=== PATIENT | female | born 2000 | race Caucasian/White ===

== ENCOUNTER → 2021-03-08 | Outpatient (CLI) | payer OTHER ==
[2021-03-08 16:01] LABS: Basophils % (A) 0 %; Eosinophils # (A) 0.1 k/uL (0-0.7); Eosinophils % (A) 1 %; HCT 41.2 % (34.0-46.0); HGB 13.3 gm/dL (11.4-16.0); Lymphocytes # (A) 1.5 k/uL (1.0-4.8); Lymphocytes % (A) 21 %; MCH 29.3 pg (25.0-35.0); MCHC 32.3 g/dL (31.0-37.0); MCV 90.5 fL (80.0-100.0); Mean Platelet Volume 7.6; Monocytes # (A) 0.3 k/uL (0-1.0); Monocytes % (A) 4 %; Neutrophils # (A) 5.1 k/uL (1.3-7.7); Neutrophils % (A) 73 %; Platelet Count 272 k/uL (150-450); RBC 4.55 m/uL (3.80-5.40); RDW 14.6 % (11.5-15.5); WBC 7.1 k/uL (4.0-11.0)
[2021-03-08 16:13] LABS: ALT 29 U/L (4-34); AST 34 U/L (14-36); African American GFR (CKD) >90 (>60 ml/min/1.73 sqM); Albumin 4.3 g/dL (3.5-5.0); Alkaline Phosphatase 50 U/L (38-126); Anion Gap 8 mmol/L; Blood Urea Nitrogen 11 mg/dL (7-17); Carbon Dioxide 28 mmol/L (22-30); Chloride 103 mmol/L (98-107); Glucose 95 mg/dL (74-99); Non-African American GFR(CKD) 83 (>60 ml/min/1.73 sqM); Potassium 4.2 mmol/L (3.5-5.1); Sodium 139 mmol/L (137-145); Total Bilirubin 0.3 mg/dL (0.2-1.3); Total Protein 6.9 g/dL (6.3-8.2)
[2021-03-08 16:28] LABS: T4, Free (Free Thyroxine) 0.97 ng/dL (0.78-2.19)
[2021-03-09 03:42] LABS: Hemoglobin A1C 5.5 % (4.0-6.0)
[2021-03-09 06:02] LABS: Follicle Stimulating Hormone 4.8 mIU/mL; Luteinizing Hormone 9.6 mIU/mL; Prolactin 6.7 ng/mL (2.8-29.2)
--- NOTE | 2021-03-09 12:39 | US ---
EXAMINATION TYPE: US thyroid st tissue head/neck DATE OF EXAM: 03/08/2021 COMPARISON: NONE CLINICAL HISTORY: GOITER E04.9. PCOS patient not feeling right, had labs done today GLAND SIZE: Right Lobe: 5.5 x 1.4 x 1.5 cm Overall Parenchyma: homogenous Left Lobe: 5.2 x 1.4 x 1.2 cm Overall Parenchyma: homogeneous Isthmus Thickness: 0.4 cm NODULES RIGHT: # of nodules measured on right: 0 LEFT: # of nodules measured on left: 0 ISTHMUS: # of nodules measured in the isthmus: 0 Bilateral neck scanned, no evidence of lymphadenopathy. *scanned inferior to thyroid gland bilaterally and no parathyroid tissue was seen* IMPRESSION: Slightly prominent thyroid gland.
== END | disposition home or self-care (01) ==
LOC: RADUSWWP 15:39
PROVIDERS: ATTEND Family Medicine
DX: E28.2 Polycystic ovarian syndrome (principal); E04.9 Nontoxic goiter, unspecified
CPT/HCPCS: 76536; 80053; 82607; 83001; 83002; 83036; 84144; 84146; 84403; 84439; 84443; 85025

== ENCOUNTER → 2021-04-17 | Outpatient (CLI) | payer OTHER ==
[2021-04-18 17:45] LABS: Chol/HDL Ratio 3.7
== END | disposition home or self-care (01) ==
LOC: LABWHC1 13:59
PROVIDERS: ATTEND Family Medicine
DX: N91.5 Oligomenorrhea, unspecified (principal); F34.1 Dysthymic disorder; Z68.43 Body mass index [BMI] 50.0-59.9, adult
CPT/HCPCS: 36415; 80061

== ENCOUNTER → 2022-03-12 | Outpatient (CLI) | payer OTHER ==
[2022-03-12 08:51] VITALS: BP 134/84; PULSE 71; RESP 18; TEMP 98.3
--- NOTE | 2022-03-12 11:01 | P.HPOB ---
History of Present Illness H&P Date: 03/12/22 Chief Complaint: Recurrent vaginitis symptoms during the past 6 months. This is a 22-year-old G0 with an LMP of 01/03/2022. The patient is here to establish with this office. Her main complaint is recurrent vaginitis symptoms. She states she believes she has had recurrent yeast infections during the past 6 months. In the past she states she use to only get yeast infections after taking antibiotics, but more recently she has been getting them more frequently especially after menstrual periods. Menarche was at age 19 and menstrual periods were infrequent about every 4-6 months in the past. One to 2 years ago she was started on metformin for PCOS and she states her menstrual periods are now about every 2 months. Her symptoms typically are a whitish or yellowish cottage cheeselike discharge with itching in the vagina. She also has noticed feeling like she has cuts near the rectal opening in this sensation comes and goes. She denies seeing any blister like lesions. She generally has not noticed odor during the day but can sometimes notice a slight odor with end of the day. She sometimes times notices smegma that she can wipe away in the creases around the vagina. She typically will use Monistat when she has vaginitis symptoms and this seems to help. She has also tried vinegar baths and recently has stopped using soap in the vaginal region. She denies douching. She has been with her female sexual partner for about 1 year. She has had sexual intercourse with 2 different men for short periods of time in 2019 and August 2020. She states her symptoms are minimal at this time. She has never had a pelvic exam done before. Review of Systems She has lost about 25 pounds with diet and exercise. Her weight was up to 340 pounds. She denies respiratory or cardiac problems. GI: Occasional constipation and and this can alter with frequent bowel movements. Past Medical History Additional Past Medical History / Comment(s): PCOS 2019. 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 History of Any Multi-Drug Resistant Organisms: None Reported Past Surgical History: No Surgical Hx Reported Past Anesthesia/Blood Transfusion Reactions: No Reported Reaction Past Psychological History: Anxiety, Depression Smoking Status: Vaper Past Alcohol Use History: Occasional Past Drug Use History: Marijuana Additional Drug Use History / Comment(s): ATTEMPTING TO QUIT MARIJUANA Additional History: She is single and has been with her female partner since January 2021. She works in the [employer] department at [employer]. - Past Family History Father Additional Family Medical History / Comment(s): Overweight. Mother Additional Family Medical History / Comment(s): Iron deficiency anemia. Maternal aunt also has iron deficiency anemia. A maternal great aunt had breast cancer. Medications and Allergies Home Medications Medication Instructions Recorded Confirmed Type Topiramate [Topamax] 50 mg PO DAILY 03/12/22 03/12/22 History buPROPion [Wellbutrin] 100 mg PO DAILY 03/12/22 03/12/22 History metFORMIN HCL 500 mg PO DAILY 03/12/22 03/12/22 History Allergies Allergy/AdvReac Type Severity Reaction Status Date / Time No Known Allergies Allergy Unverified 03/12/22 08:41 Exam Vital Signs Temp Pulse Resp BP Pulse Ox 03/12/22 08:45 98.3 F 71 18 134/84 98 Intake and Output 03/11/22 03/12/22 03/12/22 22:59 06:59 14:59 Other: Weight 143.335 kg Height 5 feet 7 inches, weight 316 pounds, BMI 49.5. This is a well-developed well-nourished obese black female who is alert and oriented times 3 in no acute distress. HEENT: Within normal limits. NECK: Supple without mass or thyromegaly. CHEST AND LUNGS: Clear to auscultation. HEART: Regular rate and rhythm. BREASTS: Deferred. BACK: Negative for CVA tenderness. ABDOMEN: Soft, obese, nontender, without palpable masses. PELVIC EXAM: There is a small dry ulcerated area at the anterior aspect of the perineum measuring approximately 3-4 mm. She states this is the area that sometimes feels like cuts . The external genitalia is otherwise unremarkable. Cervix and vagina appear normal . There is a small amount of whitish mucousy discharge without odor. There is no cervical motion tenderness. There is no evidence of prolapse. The uterus is midposition, nongravid size and nontender. There are no palpable adnexal masses or tenderness. RECTAL EXAM: Deferred. EXTREMITIES: Nontender. IMPRESSION: 1. 22-year-old female with recurrent vaginitis and vulvitis symptoms. Differential diagnosis will include recurrent mike vaginitis, recurrent genital HSV outbreaks, contact dermatitis, bacterial vaginosis, and less likely, STD such as Chlamydia or Trichomonas. 2. Perineal ulceration could represent an HSV lesion that is past the blister or broken blister stage. 3. Previous mail sexual encounters 2 in the past with current female sexual partner during the past 1 year. PLAN: 1. Pap smear was performed. 2. Affirm vaginitis panel was obtained from the vagina. GC and Chlamydia testing was obtained from the cervix. HSV testing was done on the perineal ulceration area. She understands the HSV testing may be limited since genital HSV may not be detectable when there is not a current or recent ulceration. 3. Since her symptoms are not bad at this time, we may not be seeing the cause for her recurrent symptoms. If no good explanation is determined after the the above testing is back, she was instructed to return when she is having more active symptoms. 4. She was advised to avoid over washing with soap, avoid sitting in a chlorinated water for long periods of time such as hot tubs or pools. I have also asked her to avoid douching. 5. She is being managed for PCOS with metformin by her PCP. 6. We discussed the importance of weight control. We discussed regular exercise and good nutrition. I have also recommended that she increase the fiber in her diet since she may having IBS symptoms. 7. She was advised to return in one year for her annual well woman exam and as needed. Total time spent with the patient 45 minutes.
[2022-03-13 15:57] LABS: Gardnerella Negative (Negative); Source Vagina; Trichomonas Negative (Negative)
== END ==
LOC: WWCWWP 08:29
PROVIDERS: ATTEND Obstetrics & Gynecology
DX: Z11.3 Encounter for screening for infections with a predominantly sexual mode of transmission (principal); N76.1 Subacute and chronic vaginitis; N76.2 Acute vulvitis; N76.6 Ulceration of vulva
CPT/HCPCS: 87480; 87491; 87510; 87591; 87660

== ENCOUNTER → 2023-05-11 | Outpatient (CLI) | payer MEDICAID ==
--- NOTE | 2023-05-11 14:32 | XR ---
EXAMINATION TYPE: XR knee complete RT DATE OF EXAM: 05/11/2023 2:22 PM CLINICAL INDICATION:Female, 23 years old with history of M25.561; [facility] COMPARISON: None. TECHNIQUE: XR knee complete RT; examined in Frontal, lateral and oblique projections. FINDINGS: No evidence of any acute osseous pathology, soft tissue swelling, or joint effusion is no madhu. Muscle injury to the tibial tuberosity with osseous body without union to the tibial tuberosity. Mild osteophyte formation of the tibial plateau. IMPRESSION: 1. No acute osseous pathology. 2. Suspected prior [place]-Schlatter's. 3. Mild osteoarthrosis of the knee.
== END | disposition home or self-care (01) ==
LOC: RADXRMAIN 14:01
PROVIDERS: ATTEND Family Medicine
DX: M17.11 Unilateral primary osteoarthritis, right knee (principal)

== ENCOUNTER → 2023-06-02 | Outpatient (CLI) | payer MEDICAID ==
--- NOTE | 2023-06-06 05:45 | MR ---
EXAMINATION TYPE: MR knee RT wo con DATE OF EXAM: 06/02/2023 COMPARISON: Outside left knee x-ray May 27, 2023 HISTORY: Rt knee pain and swelling for 7+ years. TECHNIQUE: Multiplanar, multisequence images of the knee is performed without IV contrast. FINDINGS: MEDIAL MENISCUS: Anterior and posterior horns are intact without tear. LATERAL MENISCUS: Anterior and posterior horns are intact without tear. CRUCIATE LIGAMENTS: The anterior and posterior cruciate ligaments are intact and unremarkable. COLLATERAL LIGAMENTS: The medial collateral ligament and lateral collateral ligament complex are inta ct and unremarkable. EXTENSOR MECHANISM: Visualized quadriceps and patellar tendons are intact. Correlating with plain aldo m there is a 1.1 cm well-defined ossific density or fragment along the distal patellar tendon could r eflect product of an old [place]-Schlatter injury. EFFUSION: Small septated suprapatellar joint effusion Laterally. POPLITEAL CYST: No popliteal/brenner cyst. TRICOMPARTMENT SPACES: Mild to moderate narrowing inferior patellofemoral compartment. No significant spurring. CARTILAGE: Area of focal chondromalacia patella posterior patellar pole at site of most prominent kimber nt space narrowing axial image 29 BONE MARROW SIGNAL: No focal abnormal marrow signal is appreciated. OTHER: No additional significant abnormality is appreciated. IMPRESSION: 1. There is 1.1 cm well-defined ossific density or fragment along the distal patellar tendon suspicio us for product of old [place]-Schlatter injury. 2. Asymmetric mild to moderate patellofemoral joint arthropathy is noted as detailed above. 3. Small septated suprapatellar joint effusion.
== END | disposition home or self-care (01) ==
LOC: RADMRIMAIN 19:02
PROVIDERS: ATTEND Orthopaedic Surgery
DX: M17.11 Unilateral primary osteoarthritis, right knee (principal); M25.461 Effusion, right knee; M67.863 Other specified disorders of tendon, right knee

== ENCOUNTER 2023-12-20 10:24 | Emergency (ER) | payer BC, MEDICAID ==
[2023-12-20 10:45] VITALS: RESP 18; TEMP 98.6
[2023-12-20 12:09] LABS: Appearance,Urine Clear (Clear); Bilirubin,Urine Negative (Negative); Blood,Urine Negative (Negative); Color,Urine Colorless; Glucose,Urine (UA) Negative (Negative); Ketones,Urine Negative (Negative); Leukocyte Esterase,Urine Negative (Negative); Nitrite,Urine Negative (Negative); Protein,Urine Negative (Negative); Specific Gravity,Urine 1.008 (1.001-1.035); Urobilinogen,Urine <2.0 mg/dL (<2.0)
--- NOTE | 2023-12-20 12:32 | XR ---
EXAMINATION TYPE: XR KUB DATE OF EXAM: 12/20/2023 11:12 AM CLINICAL INDICATION:Female, 23 years old with history of pain; [facility] COMPARISON: None. TECHNIQUE: Upright view/S of the abdomen. FINDINGS: The bowel gas pattern is nonspecific, likely nonobstructive without dilated loops of small or large b owel. Small amount of fecal material and gas are demonstrated throughout the colon. No gross evidence of organomegaly. No evidence of pneumoperitoneum. No pathologic calcifications are seen. Osseous st ructures appear grossly intact. Mild S-shaped curvature of the spine. IMPRESSION: Nonspecific, likely nonobstructive bowel gas pattern. If concern persists, consider follow-up radiogr aphs and/or CT.
[2023-12-20 12:45] LABS: Basophils % (A) 0 %; Eosinophils # (A) 0.1 k/uL (0-0.7); Eosinophils % (A) 1 %; HCT 40.8 % (34.0-46.0); Lymphocytes # (A) 1.8 k/uL (1.0-4.8); Lymphocytes % (A) 25 %; MCH 29.2 pg (25.0-35.0); MCHC 31.9 g/dL (31.0-37.0); MCV 91.5 fL (80.0-100.0); Mean Platelet Volume 7.7; Monocytes # (A) 0.4 k/uL (0-1.0); Monocytes % (A) 5 %; Neutrophils # (A) 4.8 k/uL (1.3-7.7); Neutrophils % (A) 67 %; Platelet Count 285 k/uL (150-450); RBC 4.46 m/uL (3.80-5.40); RDW 14.9 % (11.5-15.5); WBC 7.1 k/uL (3.8-10.6)
[2023-12-20 12:50] LABS: ALT 18 U/L (4-34); AST 28 U/L (14-36); African American GFR (CKD) >90 (>60 ml/min/1.73 sqM); Albumin 4.4 g/dL (3.5-5.0); Alkaline Phosphatase 43 U/L (38-126); Anion Gap 6 mmol/L; Blood Urea Nitrogen 10 mg/dL (7-17); Carbon Dioxide 31 mmol/L (22-30); Chloride 102 mmol/L (98-107); Glucose 88 mg/dL (74-99); Non-African American GFR(CKD) >90 (>60 ml/min/1.73 sqM); Sodium 139 mmol/L (137-145); Total Bilirubin 0.5 mg/dL (0.2-1.3); Total Protein 7.6 g/dL (6.3-8.2)
[2023-12-20 12:56] LABS: Potassium 4.5 mmol/L (3.5-5.1)
--- NOTE | 2023-12-20 13:04 | ED ---
Abdominal Pain HPI - General Chief Complaint: Abdominal Pain Stated Complaint: abd pain Time Seen by Provider: 12/20/23 10:32 Source: patient, RN notes reviewed Mode of arrival: ambulatory Limitations: no limitations - History of Present Illness Initial Comments: 23-year-old female presents the emergency department with chief complaint of abdominal discomfort, constipation she states she is never going to the bathroom as much she started on spironolactone. Patient states that she did have some stool pill which has helped states she is just not as much as usual because of abdominal pain and cramping. No dysuria no change in . - Related Data Home Medications Medication Instructions Recorded Confirmed Topiramate [Topamax] 50 mg PO DAILY 03/12/22 03/12/22 buPROPion [Wellbutrin] 100 mg PO DAILY 03/12/22 03/12/22 metFORMIN HCL 500 mg PO DAILY 03/12/22 03/12/22 Allergies Allergy/AdvReac Type Severity Reaction Status Date / Time No Known Allergies Allergy Verified 12/20/23 10:30 Review of Systems ROS Statement: Those systems with pertinent positive or pertinent negative responses have been documented in the HPI. ROS Other: All systems not noted in ROS Statement are negative. 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 History of Any Multi-Drug Resistant Organisms: None Reported Past Surgical History: No Surgical Hx Reported Past Anesthesia/Blood Transfusion Reactions: No Reported Reaction Past Psychological History: Anxiety, Depression Smoking Status: Vaper Past Alcohol Use History: Occasional Past Drug Use History: Marijuana - Past Family History Father Additional Family Medical History / Comment(s): Overweight. Mother Additional Family Medical History / Comment(s): Iron deficiency anemia. Ma ternal aunt also has iron deficiency anemia. A maternal great aunt had breast cancer. General Exam Limitations: no limitations General appearance: alert, in no apparent distress Head exam: Present: atraumatic, normocephalic, normal inspection Neck exam: Present: normal inspection. Absent: tenderness, meningismus, lymphadenopathy Respiratory exam: Present: normal lung sounds bilaterally. Absent: respiratory distress, wheezes, rales, rhonchi, stridor Cardiovascular Exam: Present: regular rate, normal rhythm, normal heart sounds. Absent: systolic murmur, diastolic murmur, rubs, gallop, clicks GI/Abdominal exam: Present: soft, normal bowel sounds. Absent: distended, tenderness, guarding, rebound, rigid Course Vital Signs 12/20/23 12/20/23 10:26 13:37 Temperature 98.6 F Pulse Rate 92 77 Respiratory 18 18 Rate Blood Pressure 143/96 133/79 O2 Sat by Pulse 100 100 Oximetry Medical Decision Making - Medical Decision Making Was pt. sent in by a medical professional or institution (, PA, HANGER, urgent care, hospital, or assisted...) When possible be specific @ -No Did you speak to anyone other than the patient for history (EMS, parent, family, police, friend...)? What history was obtained from this source @ -No Did you review nursing and triage notes (agree or disagree)? Why? @ -I reviewed and agree with nursing and triage notes Were old charts reviewed (outside hosp., previous admission, EMS record, old EKG, old radiological studies, urgent care reports/EKG's, assisted records)? Report findings @ -No old charts were reviewed Differential Diagnosis (chest pain, altered mental status, abdominal pain women, abdominal pain men, vaginal bleeding, weakness, fever, dyspnea, syncope, headache, dizziness, GI bleed, back pain, seizure, CVA, palpatations, mental health, musculoskeletal)? @ -Differential Abdominal Pain Women: Appendicitis, Cholecystitis, diverticulosis, ischemic bowel, pancreatitis, hepatitis, UTI, gastroenteritis, AAA, incarcerated hernia, bowel obstruction, constipation, inflammatory bowel, hepatitis, peptic ulcer disease, splenic infarction, perforated viscus, vulvitis, ovarian torsion, PID, kidney stone, placenta abruption, this is not meant to be an all-inclusive list EKG interpreted by me (3pts min.). @ -None X-rays interpreted by me (1pt min.). @ -X-ray KUB shows mild constipation CT interpreted by me (1pt min.). @ -None done U/S interpreted by me (1pt. min.). @ -None done What testing was considered but not performed or refused? (CT, X-rays, U/S, labs)? Why? @ -None What meds were considered but not given or refused? Why? @ -None Did you discuss the management of the patient with other professionals (professionals i.e. , PA, HANGER, lab, RT, psych nurse, social media designer, field talent qualification specialist, teacher, agricultural technical officer, case monitor)? Give summary @ -No Was smoking cessation discussed for >3mins.? @ -No Was critical care preformed (if so, how long)? @ -No Were there social determinants of health that impacted care today? How? (Homele ssness, low income, unemployed, alcoholism, drug addiction, transportation, low edu. Level, literacy, decrease access to med. care, shelter, rehab)? @ -No Was there de-escalation of care discussed even if they declined (Discuss DNR or withdrawal of care, Hospice)? DNR status @ -No What co-morbidities impacted this encounter? (DM, HTN, Smoking, COPD, CAD, Cancer, CVA, ARF, Chemo, Hep., AIDS, mental health diagnosis, sleep apnea, morbid obesity)? @ -None Was patient admitted / discharged? Hospital course, mention meds given and route, prescriptions, significant lab abnormalities, going to OR and other pertinent info. @ -'s laboratory findings are unremarkable, urinalysis unremarkable KUB shows mi ld stool consistent with patient's symptoms patient is discharged in stable condition return parameters sybil. Undiagnosed new problem with uncertain prognosis? @ -No Drug Therapy requiring intensive monitoring for toxicity (Heparin, Nitro, Insulin, Cardizem)? @ -No Were any procedures done? @ -No Diagnosis/symptom? @ -Abdominal pain Acute, or Chronic, or Acute on Chronic? @ -Acute Uncomplicated (without systemic symptoms) or Complicated (systemic symptoms)? @ -Uncomplicated Side effects of treatment? @ -No Exacerbation, Progression, or Severe Exacerbation? @ -No Poses a threat to life or bodily function? How? (Chest pain, USA, OR, pneumonia, PE, COPD, DKA, ARF, appy, cholecystitis, CVA, Diverticulitis, Homicidal, Suicidal, threat to staff... and all critical care pts) @ -No - Lab Data Result diagrams: 12/20/23 12:27 12/20/23 12:27 Lab Results 12/20/23 12/20/23 12/20/23 Range/Units 10:58 12:27 12:27 WBC 7.1 (3.8-10.6) k/uL RBC 4.46 (3.80-5.40) m/uL Hgb 13.0 (11.4-16.0) gm/dL Hct 40.8 (34.0-46.0) % MCV 91.5 (80.0-100.0) fL MCH 29.2 (25.0-35.0) pg MCHC 31.9 (31.0-37.0) g/dL RDW 14.9 (11.5-15.5) % Plt Count 285 (150-450) k/uL MPV 7.7 Neutrophils % 67 % Lymphocytes % 25 % Monocytes % 5 % Eosinophils % 1 % Basophils % 0 % Neutrophils # 4.8 (1.3-7.7) k/uL Lymphocytes # 1.8 (1.0-4.8) k/uL Monocytes # 0.4 (0-1.0) k/uL Eosinophils # 0.1 (0-0.7) k/uL Basophils # 0.0 (0-0.2) k/uL Sodium 139 (137-145) mmol/L Potassium 4.5 (3.5-5.1) mmol/L Chloride 102 (98-107) mmol/L Carbon Dioxide 31 H (22-30) mmol/L Anion Gap 6 mmol/L BUN 10 (7-17) mg/dL Creatinine 0.71 (0.52-1.04) mg/dL Est GFR (CKD-EPI)AfAm >90 (>60 ml/min/1.73 sqM) Est GFR (CKD-EPI)NonAf >90 (>60 ml/min/1.73 sqM) Glucose 88 (74-99) mg/dL Calcium 9.0 (8.4-10.2) mg/dL Total Bilirubin 0.5 (0.2-1.3) mg/dL AST 28 (14-36) U/L ALT 18 (4-34) U/L Alkaline Phosphatase 43 (38-126) U/L Total Protein 7.6 (6.3-8.2) g/dL Albumin 4.4 (3.5-5.0) g/dL Urine Color Colorless Urine Appearance Clear (Clear) Urine pH 7.0 (5.0-8.0) Ur Specific [place] 1.008 (1.001-1.035) Urine Protein Negative (Negative) Urine Glucose (UA) Negative (Negative) Urine Ketones Negative (Negative) Urine Blood Negative (Negative) Urine Nitrite Negative (Negative) Urine Bilirubin Negative (Negative) Urine Urobilinogen <2.0 (<2.0) mg/dL Ur Leukocyte Esterase Negative (Negative) Disposition Clinical Impression: Abdominal pain Disposition: HOME SELF-CARE Condition: Stable Instructions (If sedation given, give patient instructions): Abdominal Pain (ED) Additional Instructions: Please return to the Emergency Department if symptoms worsen or any other concerns. Is patient prescribed a controlled substance at d/c from ED?: No Referrals: Bob Mittal DO [Primary Care Provider] - 1-2 days Time of Disposition: 13:04
[2023-12-20] MEDS: MAGNESIUM HYDROXIDE 2,400 MG/30 ML CUP PO STA (13:27)
[2023-12-20] MEDS: SODIUM CHLORIDE 0.9% 1,000 ML IV ONE (13:27)
[2023-12-20 14:01] VITALS: BP 133/79; PULSE 77
== END 2023-12-20 13:39 | disposition home or self-care (01) ==
LOC: EC 10:24
DX: R10.9 Unspecified abdominal pain (principal); F17.290 Nicotine dependence, other tobacco product, uncomplicated
CPT/HCPCS: 36415; 74018; 80053; 81003; 85025; 99284